=== PATIENT | female | born 1975 | race Caucasian/White ===

== ENCOUNTER 2017-10-16 17:27 | Emergency (ER) | payer OTHER ==
[2017-10-16 17:42] VITALS: BP 130/83
== END 2017-10-16 18:34 | disposition left against medical advice (07) ==
LOC: ED 17:27
DX: Z53.21 Procedure and treatment not carried out due to patient leaving prior to being seen by health care provider (principal)

== ENCOUNTER 2020-02-19 12:01 | Outpatient (CLI) | payer OTHER ==
[2020-02-19 12:30] LABS: BASOPHILS % (AUTO) 0.8 %; EOSINOPHILS # (AUTO) 0.1 10^3/uL (0.0-0.7); HGB - HEMOGLOBIN 13.6 g/dL (12.0-16.0); LYMPHOCYTES % (AUTO) 40.3 %; MEAN CORPUSCULAR HEMOGLOBIN 27.9 pg (27.0-31.0); MEAN CORPUSCULAR HGB CONC 32.2 g/dL (32.0-36.0); MEAN CORPUSCULAR VOLUME 86.7 fL (81.0-99.0); MEAN PLATELET VOLUME 10.4 fL (7.9-10.8); MONOCYTES # (AUTO) 0.4 10^3/uL (0.0-1.0); MONOCYTES % (AUTO) 7.1 %; NEUTROPHILS # (AUTO) 2.5 10^3/uL (1.5-6.6); NEUTROPHILS % (AUTO) 49.6 %; PLT - PLATELET COUNT 258 10^3/uL (130-450); RED BLOOD COUNT 4.87 10^6/uL (4.20-5.40)
== END 2020-02-19 12:02 | disposition home or self-care (01) ==
LOC: LAB 12:01
PROVIDERS: ATTEND Obstetrics & Gynecology
DX: Z01.818 Encounter for other preprocedural examination (principal); N93.9 Abnormal uterine and vaginal bleeding, unspecified
CPT/HCPCS: 36415; 85025; 86850; 86900; 86901; 86920

== ENCOUNTER 2020-02-21 08:28 | Inpatient (IN) | payer OTHER ==
[2020-02-21 08:28] LABS: HCG UR QUAL NEGATIVE
[~2020-02-21 08:28] MED LIST: CEFAZOLIN SODIUM IN 0.9 % NACL 2 GM/100 ML BAG IV ONE
--- NOTE | 2020-02-21 08:44 | ANESTHESIA ---
Pre-Anesthesia VS, & Labs - Diagnosis uterine bleeding - Procedure total laparoscopic hysterectomy, bilateral salphingectomy, cystoscopy Vital Signs: Temp Pulse Resp BP Pulse Ox 36.6 C 65 18 126/78 100 02/21/20 08:20 02/21/20 08:20 02/21/20 08:20 02/21/20 08:20 02/21/20 08:20 Height 5 ft 7 in Weight (kg) 78.47 kg Body Mass Index 25.8 - NPO >8 hours - Is Patient ?: No Home Medications and Allergies Home Medications: Ambulatory Orders Amitriptyline [Elavil] 25 mg PO QPM 02/18/20 Levothyroxine Sodium [Synthroid] 88 mcg PO DAILY 06/22/13 Sertraline [Zoloft] 100 mg PO DAILY 06/22/13 Gabapentin 300 mg ORAL QPM 05/06/16 buPROPion [Wellbutrin Sr] 150 mg ORAL BID 05/06/16 Amitriptyline [Elavil] 25 mg PO QPM 02/18/20 Allergies/Adverse Reactions: Allergies Allergy/AdvReac Type Severity Reaction Status Date / Time erythromycin base Allergy Intermediate Hives Verified 02/18/20 12:06 [Erythromycin Base] Anes History & Medical History - Anesthetic History Anesthesia Complications: reports: Post-Operative Nausea/Vomiting - Medical History Cardiovascular: reports: Other Pulmonary: reports: Sleep apnea Gastrointestinal: reports: None Urinary: reports: Other Musculoskeletal: reports: None Endocrine/Autoimmune: reports: HyPOthyroidism Blood Disorders: reports: None Skin: reports: None Smoking Status: Never smoker - Surgical History Eyes Ears Nose Throat (EENT): Tonsil/Adenoidectomy Gynecologic: section, Tubal ligation, LEEP (Cervical surgery) Exam General: Alert Dental: WNL Mouth Opening: Greater than 4 Fingerbreadths Neck Mobility: Normal Mallampati classification: I Respiratory: Lungs clear Cardiovascular: Regular rate Plan Anesthesia Type: General Consent for Procedure(s) Verified and Reviewed: Yes Code Status: Attempt Resuscitation ASA classification: 2-Mild systemic disease Is this case an emergency?: No
[2020-02-21] MEDS ORDERED: LACTATED RINGERS 1,000 ML IV ONE ×3 (08:50→16:02)
[2020-02-21] MEDS ORDERED: BUPIVACAINE 0.25% PF 30 ML VIAL ONE (09:30)
--- NOTE | 2020-02-21 10:09 | PHARMACY PROGRESS NOTE ---
- Best Possible Medication History Admit Date and Time: 02/21/20 0828 Processed by: Nursing Medication History completed: Yes Patient Interview: Completed As the person ultimately responsible for medication therapy, providers are able to order a medication from an existing home medication list in [facility] via the "Reconcile Routine" prior to Confirmation of that medication by security support analyst. Such practice is discouraged except when the physician, in their clinical judg ment, deems that a medical need exists for a medication without regard to previous use.
[2020-02-21] MEDS ORDERED: BUPIVACAINE 0.25% PF 30 ML VIAL SUBQ ONE (10:16)
[2020-02-21] MEDS ORDERED: SODIUM CHLORIDE 0.9% 500 ML IV PRN (12:24)
[2020-02-21] MEDS ORDERED: oxyCODONE 5 MG TABLET PO PRN ×2 (15:40→15:54)
[2020-02-21] MEDS ORDERED: HYDROmorphone 0.5 MG/0.5 ML SYRINGE IVP PRN (15:40)
--- NOTE | 2020-02-21 15:48 | OPERATIVE REPORT ---
Operative Report - General Admit Date: 02/21/20 Planned Procedure: total laparoscopic hysterectomy, bilateral salpingectomy, cystoscopy Pre-Op Diagnosis: pelvic pain, abnormal uterine bleeding Procedure Performed: total laparoscopic hysterectomy, bilateral salpingectomy, cystoscopy, laparotomy, repair of cystotomy Post Op Diagnosis: same as above, cystotomy - Procedure Note Primary Surgeon: Selma Nj Secondary Surgeon: Malia Oglesby Anesthesia Provider: Neva Casey Anesthesia Technique: General ET tube Pathology: uterus with cervix, bilateral fallopian tubes IV Fluids (mL): 1,400 Estimated Blood Loss (mL): 250 Urine Output (mL): 125 Indications: abnormal uterine bleeding, chronic pelvic pain Findings: Normal uterus, small endometriotic implants in the posterior fossa, normal ovaries, small endometrioma on left fimbria (removed). Cystotomy, thought to have been created with blunt digital penetration during difficult extraction of the uterus, requiring laparotomy and 3 layer repair. Watertight repair and brisk bilateral ureteral jets at conclusion. Complications: cystotomy - Other Other Information/Narrative: After informed consent was obtained, the patient was taken to the operating room, where general anesthesia was administered without difficulty. Exam under anesthesia performed, revealing a small anteverted uterus and no mass. The patient was prepped and draped in normal sterile fashion in the dorsal lithotomy position. Surgical time out was performed. A speculum was placed in the vagina and the anterior cervix was grasped with a single tooth tenaculum. The uterus sounded to 8 cm. Hanks dilators were used to dilate the cervix to 15 Occitan. The Try Out Person uterine manipulator with medium colpotomy ring was placed up to the fundus and the tip balloon was inflated with 10 ml of saline. The colpotomy cup was advanced around the cervix and locked into place. Grant catheter was placed into the bladder, draining clear yellow urine. Attention was directed to the abdomen. After confirming a gastric tube was placed and the bed was flat, 0.25% marcaine was injected at the umbilicus and a 5mm port was inserted through a vertical skin incision under direct visualization with the laparoscope. The abdomen was partially insufflated with <5mmHg initial insufflation pressure which was increased to achieve complete pneumoperitoneum at 15 mmHg. A survey of the abdominal cavity revealed no bowel injury under the entry site, normal liver edge and gallbladder. The uterus was normal; the bladder was noted to be scarred midway up the anterior uterus. Normal fallopian tubes were seen with evidence of prior tubal ligation separat ing the fimbria from the remainder of the tube and a small hemorragic cyst versus endometrioma attached to the left fimbria. The bilateral ovaries were normal. Endometriotic implants (powderburn lesions) were noted along the right ovarian fossa and in the rectouterine cul-de-sac; an Kevin Masters window was noted in the left uterosacral ligament. The ureter was identified and noted to vermiculate on each side. Two lateral 5 mm ports were then placed under direct visualization. The left fallopian tube was grasped at the fimbria and elevated; the Ligasure energy device was used to separate the tube from the mesosalpinx to the level of the cornua, were it was transected. The tube was then placed anterior to the uterus. The same procedure was repeated on the right. The right fimbria was easi ly removed through the port, however the left tube which was distorted by the attached cyst required decompression of the cyst to be removed. The left cornua was gently grasped and elevated; the Ligasure energy device was used to divide the round ligament. The broad ligament was noted to be thickened and fibrotic, making development of a vesicouterine plane difficult. The left uteroovarian ligament was isolated and transected. The right cornua was then grasped and the round ligament transection; this allowed entry into the broad ligament leaves which were dissected down with dissectioncarried anteriorly over the lower uterine segment along the vesicouterine peritoneum to create a bladder flap. This dissection was carried over to the left broad ligament. Some bleeding was noted on the left at the level of the utero-ovarian vessels, this was secured with the Ligasure. The left uterine artery was then skeletonized and cauterized with the Ligasure. The bladder flap was developed with judicious use of blunt dissection and cautery. The right uterine artery was then skeletonized, coagulated and cut with the Harmonic. Several straight bites along the cervix were taken with the Ligasure on each side to allow the pedicles and ureters to fall away laterally. The colpotomy ring was easily identified and isolated circumferentially. The monopolar L hook was used to create a colpotomy circumferentially along the top edge of the colpotomy ring. The manipulator was removed. Due to the narrow introitus and bulbous fundus, difficulty was noted extracting the uterus; the double tooth tenaculum was clamped on the cervix which was brought past the hymen; two single tooth tenaculums were placed on the visible lower uterine segment and the cervix was wedged out with a scalpel. The allowed sufficient compression of the uterine body that it could be removed manually. The colpotomy cuff was grasped with Allis clamps; some bleeding was noted along the right and this was secured with two figure of eight sutures. The cuff was then reapproximated with multiple figure of eight sutures in a horizontal fashion. Attention was turned to the cystoscopy. The grant catheter was removed and the 70 degree cystoscope set up and white balanced. Fluids were run through and the cystoscope was gently advanced through the urethra into the bladder. Bilateral ureteral orifices were identified and brisk ureteral jets were visualized bilaterally. Survey of the bladder mucosa revealed a cystotomy at the right portion of the dome, with no evidence of surrounding pascale or heat injury. The bladder was drained and the cystoscope was removed. A sharp incision was made through the patient's pfannenstiel scar and carried down to the fascia. The fascia was scored on each side and bluntly dissected off of the rectus muscles. The muscles were in the midline and the peritoneum was elevated and entered sharply, with return of a gush of urine. The peritoneal incision was extended bluntly and with cautery. An Constantino retractor was placed. The bowels were gently packed with cephalad with moist laparotomy sponges and held in place with a malleable retractor. The bladder was grasped with a margie allowing visualization of the cystotomy; the injury was an approximately 1.5 cm horizontal lesion with no evidence of surrounding pascale; suspected blunt digital penetration during the manipulation to remove the fundus of the uterus through the vagina. The bladder was repaired in 3 layers; a running layer of 3-0 vicryl in the mucosa, followed by a running locked layer of 3-0 vicryl in the muscularis, and a running embricating suture of 4-0 monocryl in the serosa. Ancef was redosed during the repair due to the extended surgical time. Cystoscopy was again performed and the bladder appeared intact; ureteral jets were again seen. However, there appeared to be some ooze of fluid through the repair; a 4th layer of 3-0 vicryl was placed over the cystotomy, incorporating muscularis and serosa in each bite. The bladder was then filled with sterile milk through a red sameer catheter, and no leakage of milk into the abdomen was noted. The cystoscope was again introduced, the milk was flushed from the bladder; ureteral jets were again identified. The repair appeared watertight from both cystoscopic view and visualization in the abdomen. The cystoscope was removed and a grant catheter was placed to drain the urine. Attention was returned to the abdomen. All pedicles appeared hemostatic. All sponges were removed. The fascia was repaired with a running suture of 0 vicryl. The subcutaneous space was reapproximated with interrupted sutures of 2-0 vicryl. A running subcuticular suture of 4-0 monocryl was used to reapproximate the skin. 4-0 monocryl single interrupted sutures were placed in each port site. Dermabond skin adhesive was placed over each port site, and steristrips were placed over the pfannenstiel incision, follwed by a silver dressing. Lap, instrument, and needle counts were correct x 2. Pt was awakened from anesthesia and transferred to PACU in stable condition.
[2020-02-21] MEDS: ONDANSETRON 4 MG/2 ML VIAL IVP PRN ×2 (15:50→23:36)
[2020-02-21] MEDS ORDERED: SCOPOLAMINE PATCH TOP ONE (15:51)
[2020-02-21] MEDS ORDERED: ONDANSETRON 4 MG/2 ML VIAL ONE (15:51)
[2020-02-21] MEDS: HYDROmorphone 1 MG/ML CARPUJECT ONE ×2 (15:52→15:57)
[2020-02-21] MEDS ORDERED: ACETAMINOPHEN 500 MG TABLET PO SCH (16:00)
[2020-02-21] MEDS ORDERED: HYDROmorphone 0.5 MG/0.5 ML SYRINGE ONE (16:17)
[2020-02-21] MEDS ORDERED: fentaNYL 100 MCG/2 ML VIAL IVP ONE (16:38)
[2020-02-21] MEDS ORDERED: GLYCOPYRROLATE 1 MG/5 ML VIAL IVP ONE (16:38)
[2020-02-21] MEDS ORDERED: ROCURONIUM 50 MG/5 ML VIAL IVP ONE (16:38)
[2020-02-21] MEDS ORDERED: DEXAMETHASONE 4 MG/ML VIAL IVP ONE (16:38)
[2020-02-21] MEDS ORDERED: ACETAMINOPHEN 1,000 MG/100 ML 100 ML IV ONE (16:38)
[2020-02-21] MEDS ORDERED: LIDOCAINE-MPF 2% 5 ML VIAL IM ONE (16:38)
[2020-02-21] MEDS ORDERED: HYDROmorphone 1 MG/ML CARPUJECT IVP ONE (16:38)
[2020-02-21] MEDS ORDERED: PROPOFOL 200 MG/20 ML VIAL IVP ONE (16:38)
[2020-02-21] MEDS ORDERED: fentaNYL 250 MCG/5 ML VIAL IVP ONE (16:38)
[2020-02-21] MEDS ORDERED: ONDANSETRON 4 MG/2 ML VIAL IVP ONE (16:38)
[2020-02-21] MEDS: LACTATED RINGERS 1,000 ML IV SCH ×2 (17:01→23:36)
[2020-02-21] MEDS ORDERED: PROMETHAZINE 25 MG/1 ML VIAL IM SCH (18:56)
[2020-02-21] MEDS: PROMETHAZINE 25 MG/1 ML VIAL IM PRN (19:23)
[2020-02-21] MEDS: PROCHLORPERAZINE 10 MG/2 ML VIAL IVP PRN (20:48)
[2020-02-21] MEDS: DOCUSATE SODIUM 100 MG CAPSULE PO SCH (20:49)
[2020-02-21] MEDS: ACETAMINOPHEN 1,000 MG/100 ML 100 ML IV PRN (23:42)
[2020-02-22] MEDS: PROMETHAZINE 25 MG/1 ML VIAL IM PRN (01:27)
[2020-02-22 04:44] LABS: BASOPHILS % (AUTO) 0.2 %; EOSINOPHILS # (AUTO) 0.1 10^3/uL (0.0-0.7); EOSINOPHILS % (AUTO) 0.5 %; HGB - HEMOGLOBIN 12.1 g/dL (12.0-16.0); LYMPHOCYTES % (AUTO) 5.2 %; MEAN CORPUSCULAR HEMOGLOBIN 27.8 pg (27.0-31.0); MEAN CORPUSCULAR HGB CONC 32.2 g/dL (32.0-36.0); MEAN CORPUSCULAR VOLUME 86.4 fL (81.0-99.0); MEAN PLATELET VOLUME 10.7 fL (7.9-10.8); MONOCYTES # (AUTO) 0.9 10^3/uL (0.0-1.0); MONOCYTES % (AUTO) 5.1 %; NEUTROPHILS # (AUTO) 16.2 10^3/uL (1.5-6.6); NEUTROPHILS % (AUTO) 88.6 %; PLT - PLATELET COUNT 271 10^3/uL (130-450); RED BLOOD COUNT 4.35 10^6/uL (4.20-5.40); RED CELL DISTRIBUTION WIDTH 12.8 % (12.0-15.0); WHITE BLOOD COUNT 18.3 x10^3/uL (4.8-10.8)
[2020-02-22] MEDS: PROCHLORPERAZINE 10 MG/2 ML VIAL IVP PRN (04:45)
--- NOTE | 2020-02-22 07:22 | PROVIDER PROGRESS NOTE ---
Subjective - Prog Note Date Prog Note Date: 02/22/20 Prog Note Time: 07:20 - Subjective Pt reports feeling: No change (44 yo woman POD#1 s/p TLH/BS c/b cystotomy requiring laparotomy and bladder repair. Significant nausea overnight; no relief with zofran, some rest with phenergan and compazine, but still very nauseous when awake. Has not tolerated anything other than ice chips and water. Not yet ambulating. Voiding to grant. Not passing flatus. Pain well controlled with IV tylenol alone currently; reports pain primarily burning incisional pain around pfannenstiel.) Objective - Vital Signs/Intake & Output Vital Signs: Vital Signs x48h Temp Pulse Resp BP Pulse Ox 02/22/20 03:00 97.5 F L 74 20 127/75 100 Intake & Output: Intake & Output 02/19/20 02/20/20 02/21/20 02/22/20 23:59 23:59 23:59 23:59 Intake Total 2808.333 100 Output Total 1045 725 Balance 1763.333 -625 - Objective General Appearance: positive: Alert (some nausea and spitting this AM, but no dry heaving during exam; improved from yesterday evening when retching was nearly constant) Abdomen: positive: No distention (soft, appropriate rodolfo-incisional tenderness, no rebound or guarding. Port sites c/d/i, some surrounding ecchymosis in RLQ. Silver dressing over pfannenstiel, no strike through.) Skin: positive: Color nml Extremities: positive: Non-tender Neurologic/Psychiatric: positive: Oriented x3 - Lab Results Fish Bones: 02/22/20 04:25 Other Labs: Lab Results x24hrs 02/22/20 02/21/20 Range/Units 04:25 08:23 WBC 18.3 H (4.8-10.8) x10^3/uL RBC 4.35 (4.20-5.40) 10^6/uL Hgb 12.1 (12.0-16.0) g/dL Hct 37.6 (37.0-47.0) % MCV 86.4 (81.0-99.0) fL MCH 27.8 (27.0-31.0) pg MCHC 32.2 (32.0-36.0) g/dL RDW 12.8 (12.0-15.0) % Plt Count 271 (130-450) 10^3/uL MPV 10.7 (7.9-10.8) fL Neut # (Auto) 16.2 H (1.5-6.6) 10^3/uL Lymph # (Auto) 1.0 L (1.5-3.5) 10^3/uL [place] # (Auto) 0.9 (0.0-1.0) 10^3/uL Eos # (Auto) 0.1 (0.0-0.7) 10^3/uL Baso # (Auto) 0.0 (0.0-0.1) 10^3/uL Absolute Nucleated RBC 0.00 x10^3/uL Nucleated RBC % 0.0 /100WBC Ur Specific [place] >=1.030 H (1.002-1.030) Urine HCG, Qual NEGATIVE Assessment/Plan - Problem List (1) Absence of both cervix and uterus, acquired Impression: 44 yo woman POD#1 s/p TLH/BS c/b cystotomy requiring laparotomy and bladder repair. Overnight, nausea and vomiting with minimal PO intake. VS wnl, UOP 0.7 ml/kg/h. Exam benign. Hct 37. Postop nausea. Improved mildly with compazine, zofran ineffective. Will consider trial of reglan today. Encourage ambulation, chewing gum, and clear diet when tolerated. High risk for developing ileus, will continue to monitor. Pain control. Continue IV tylenol, IV dilaudid only prn breakthrough. Transition to orals when pt can tolerate Cystotomy. Maintain grant catheter in place, plan for 2 weeks bladder compression and retrograde cystogram prior to removal VTE prophylaxis. SCDs. Dispo. Home tomorrow if tolerating PO, passing flatus, and pain well controlled.
[2020-02-22] MEDS: ONDANSETRON 4 MG/2 ML VIAL IVP PRN (08:22)
[2020-02-22] MEDS: ACETAMINOPHEN 1,000 MG/100 ML 100 ML IV PRN ×2 (08:22→16:09)
[2020-02-22] MEDS: DOCUSATE SODIUM 100 MG CAPSULE PO SCH ×2 (08:26→19:22)
[2020-02-22] MEDS ORDERED: METOCLOPRAMIDE 10 MG/2 ML VIAL IVP PRN (08:28)
[2020-02-22] MEDS: LACTATED RINGERS 1,000 ML IV SCH ×2 (10:12→19:22)
[2020-02-23] MEDS: ACETAMINOPHEN 1,000 MG/100 ML 100 ML IV PRN ×2 (00:12→05:41)
[2020-02-23] MEDS: LACTATED RINGERS 1,000 ML IV SCH (05:40)
[2020-02-23] MEDS ORDERED: IBUPROFEN 800 MG TABLET PO PRN (07:42)
--- NOTE | 2020-02-23 07:45 | PROVIDER PROGRESS NOTE ---
Subjective - Prog Note Date Prog Note Date: 02/23/20 Prog Note Time: 07:40 - Subjective Pt reports feeling: Improved (Pt doing significantly better. Postoperative nausea resolved, no nausea or emesis overnight, did not need reglan. Tolerated clears last night (broth, jello) with no nausea. Hungry for breakfast this AM. Voiding to grant. Noted some slight spotting from vagina when she felt urge to have BM, no other discharge. Has not passed flatus or had BM yet. Ambulating without assistance. Pain well controlled with IV tylenol alone.) Objective - Vital Signs/Intake & Output Vital Signs: Vital Signs x48h Temp Pulse Resp BP Pulse Ox 02/23/20 04:55 98.2 F 84 16 111/66 94 02/23/20 00:05 98.8 F 91 16 131/67 H 96 Intake & Output: Intake & Output 02/20/20 02/21/20 02/22/20 02/23/20 23:59 23:59 23:59 23:59 Intake Total 2808.333 2336.667 1185 Output Total 1045 3325 1950 Balance 1763.333 -988.333 -765 - Objective General Appearance: positive: No acute distress Abdomen: positive: No distention (soft, appropriate rodolfo-incisional tenderness. Port sites c/d/i with skin adhesive in place. Silver dressing and foam tape over pfannenstiel.) Extremities: positive: Non-tender Neurologic/Psychiatric: positive: Oriented x3 - Lab Results Fish Bones: 02/22/20 04:25 Assessment/Plan - Problem List (1) Absence of both cervix and uterus, acquired Impression: 44 yo POD#2 s/p TLH/BS c/b cystotomy with immediate laparotomy and repair. VS wnl, exam benign, UOP excellent. -Cystotomy. Grant remains in place. Will transition to leg bag today and teach patient to empty. Referral placed to Dr. Chen, [facility], for cystogram 10-14 days post-operatively to determine if grant catheter can be removed. Pt aware to expect call from her office. Rvwd importance of monitoring output, seeking care if tube seems blocked or if frankly bloody urine. -Post-op nausea and vomiting. Significantly improved, no antiemetics overnight. Will advance diet today. -Post-op pain control. Transition tylenol to PO, start oral ibuprofen once tolerating regular diet. -Dispo. Once passing flatus and tolerating regular diet, will discharge. Rvwd discharge precautions. Follow up in clinic on or Tuesday for removal of silver dressing and incision check, pt aware to expect a call from [facility] to schedule on Tuesday.
--- NOTE | 2020-02-23 07:54 | DISCHARGE SUMMARY ---
Discharge Summary Admit Date: 02/21/20 Discharge Date: 02/23/20 Discharging Provider: Selma Nj Code Status: Attempt Resuscitation Condition at Discharge: Good Discharge Disposition: 01 Home, Self Care Discharge Facility Name: [facility] - DIAGNOSES Admission Diagnoses: Abnormal uterine bleeding Discharge Diagnoses with Status of Each Condition: 1. Abnormal uterine bleeding, s/p hysterectomy 2. Endometriosis 3. Cystotomy during surgery, s/p immediate laparotomy and repair 4. Postoperative nausea and vomiting, resolved - HPI History of Present Illness: 44 yo woman with abnormal uterine bleeding admitted for planned surgery. - CONSULTS | PROCEDURES Procedures: 1. total laparoscopic hysterectomy and bilateral salpingectomy 2. cystoscopy 3. laparotomy with repair of cystotomy - HOSPITAL COURSE Hospital Course: Admitted for planned surgery. Underwent total laparoscopic hysterectomy, bilateral salpingectomy and cystoscopy with cystotomy identifed during cystoscopy. 1.5 cm injury to bladder dome. Immediate laparotomy and repair of cystotomy; bladder back-fill confirmed repair watertight and repeat cystoscopy confirmed no occlusion or kinking of ureters. Postoperative course complicated by significant nausea and vomiting, refractory to scopolamine, zofran, phenergan, compazine, ultimately resolved with bowel rest and reglan in the evening of POD#1. Pt remained afebrile throughout her stay. At the time of discharge, pain was well controlled with oral medications, she was tolerating regular diet without further nausea and ambulating unassisted. A grant catheter remained in place to keep the bladder decompressed and patient was educated on use of a leg bag and grant catheter care before discharge. - ALLERGIES Allergies/Adverse Reactions: Allergies Allergy/AdvReac Type Severity Reaction Status Date / Time erythromycin base Allergy Intermediate Hives Verified 02/18/20 12:06 [Erythromycin Base] - MEDICATIONS Home Medications: Ambulatory Orders Medication Instructions Recorded Confirmed Levothyroxine Sodium [Synthroid] 88 mcg PO DAILY 06/22/13 02/21/20 Sertraline [Zoloft] 100 mg PO DAILY 06/22/13 02/21/20 Gabapentin 300 mg PO QPM 05/06/16 02/21/20 buPROPion [Wellbutrin Sr] 150 mg PO BID 05/06/16 02/21/20 Amitriptyline [Elavil] 25 mg PO QPM 02/18/20 02/21/20 - PHYSICAL EXAM AT DISCHARGE General Appearance: positive: No acute distress (see progress note for full exam) - LABS Result Diagrams: 02/22/20 04:25 - FOLLOW UP Follow Up: 1. Follow up with Dr. Nj at [facility] [employer]; expect a call from our clinic on Tuesday or Tuesday to schedule an appt for or 28 February to check your incisions 2. Follow up with Dr. Salinas at [facility] for Cystogram March 03-; expect a call from their office this week once Alejandrina authorizes referral Home care instructions Do not drive for at least 2 weeks after your surgery. You should never drive if you are using prescription pain medicine and you should not drive until you feel you could react quickly in traffic. After surgery expect to have both good days and bad days as you recover. The first few days after surgery most women are sore so plan to stay at home and have someone nearby to help out. As you begin to recover gradually increase your activity. For the first 4 weeks after surgery please do not: "work out", do house work, or lift objects heavier than 10 lbs (approximately a gallon of milk). Please do not have intercourse or place anything in the vagina for 6 weeks after surgery. You may shower but do not take baths or swim. Let soap and water run over your incisions and pat dry. Use a stool softener for 2-4 weeks so that you do not need to strain for bowel movements. [id number] may be added for constipation. The grant catheter will remain in your bladder until the cystogram shows your bladder is healed, 10-14 days after surgery. It will need to be emptied regularly. If at any time the urine appears to be frankly bloody or you are not getting urine in the tube and it feels like your bladder is full, please call the [employer] clinic or come to the ER. When to call the clinic [phone], or come to the Emergency Department: Blee ding heavier than a period, wound redness or drainage, vomiting, severe pain, fever to 100.4 or higher, inability or difficulty emptying your bladder or any other unusual symptoms. - TIME SPENT Time Spent in Discharge (Minutes): 30
[2020-02-23] MEDS ORDERED: ACETAMINOPHEN 500 MG TABLET PO SCH ×2 (08:00→12:00)
[2020-02-23] MEDS: DOCUSATE SODIUM 100 MG CAPSULE PO SCH (08:15)
[2020-02-23 12:42] VITALS: BP 120/74
== END 2020-02-23 13:50 | disposition home or self-care (01) | DRG 742 ==
LOC: MS2 08:28
PROVIDERS: ADMIT Obstetrics & Gynecology; ATTEND Obstetrics & Gynecology
PROC: 0TQB0ZZ Repair Bladder, Open Approach (ICD-10-PCS; 2020-02-21)
PROC: 0UT74ZZ Resection of Bilateral Fallopian Tubes, Percutaneous Endoscopic Approach (ICD-10-PCS; 2020-02-21)
PROC: 0UT94ZZ Resection of Uterus, Percutaneous Endoscopic Approach (ICD-10-PCS; principal; 2020-02-21 09:15)
DX: N80.3 Endometriosis of pelvic peritoneum (principal); N99.71 Accidental puncture and laceration of a genitourinary system organ or structure during a genitourinary system procedure; N80.2 Endometriosis of fallopian tube; N99.4 Postprocedural pelvic peritoneal adhesions; R11.2 Nausea with vomiting, unspecified; E03.9 Hypothyroidism, unspecified; F32.9 Major depressive disorder, single episode, unspecified; M54.2 Cervicalgia; Z87.891 Personal history of nicotine dependence
CPT/HCPCS: 36415; 81025; 85025; 86850; 86900; 86901; 86920

== ENCOUNTER 2021-04-23 13:14 | Outpatient (CLI) | payer OTHER ==
--- NOTE | 2021-04-23 14:30 | MRI Report ---
PROCEDURE: Knee LT W/O INDICATIONS: PAIN IN LEFT KNEE TECHNIQUE: Noncontrast sagittal PD fast spin echo and T2 fast spin echo with fat saturation, sagittal 3-D gradie nt sequence with fat saturation; coronal T1 spin echo and PD fast spin echo with fat saturation, and axial PD fast spin echo with fat saturation through the knee. COMPARISON: None. FINDINGS: Menisci: Medial meniscus: Increased focal T2 hyperintense signal change is present adjacent to the posterior h orn of the medial meniscus, for example image 23/501. Lateral meniscus: Intact. Cruciate ligaments: Anterior cruciate ligament: Intact. Incidentally noted periligamentous ganglion cysts. Posterior cruciate ligament: Intact. Medial structures: The medial collateral ligament appears intact. The semimembranosus tendon appears intact. Visualized portions of the pes anserinus tendons appear normal. No abnormal bursal fluid. Lateral structures: Lateral collateral ligament appears grossly intact. Biceps femoris tendon appears intact. Iliotibial band within normal limits. Popliteus tendon within normal limits. Anterior structures: Mild patellar tendinopathy, with prepatellar and superficial infrapatellar edema. The quadriceps tendon appears intact. Medial and lateral patellofemoral ligaments appear grossly intact. Patellar alignment is normal. Hoffa's fat pad unremarkable. Bones and cartilage: Bones: No bone marrow contusions or fractures. Medial compartment: Cartilage intact. Lateral compartment: Cartilage intact. Patellofemoral compartment: Cartilage intact. Joint space: No joint effusion. No Douglass?s cyst. No specific evidence of loose body identified. IMPRESSION: Signal changes adjacent to the posterior horn of the medial meniscus suggestive of meniscocapsular se paration/peripheral meniscal tear. Please correlate point tenderness and clinical exam findings. Mild patellar tendinopathy. Reviewed by: Luis Gasca MD on 04/23/2021 2:29 PM PDT Approved by: Luis Gasca MD on 04/23/2021 2:29 PM PDT Station ID: [id number]
== END 2021-04-23 13:15 | disposition home or self-care (01) ==
LOC: DI 13:14
PROVIDERS: ATTEND Nurse Practitioner Family
DX: M67.962 Unspecified disorder of synovium and tendon, left lower leg (principal)

== ENCOUNTER 2021-05-11 13:33 | Outpatient (CLI) | payer OTHER ==
--- NOTE | 2021-05-18 15:44 | Mammography Report ---
BILATERAL DIGITAL SCREENING MAMMOGRAM 3D/2D WITH AUGMENTATION: 05/11/2021 CLINICAL: Routine screening. No prior exams were available for comparison. The tissue of both breasts is heterogeneously dense. T his may lower the sensitivity of mammography. There is a 0.8 cm asymmetry in the right breast anterior depth inferior region seen on the mediolater al oblique view only 1.5 cm from the nipple. No other significant masses, calcifications, or other findings are seen in either breast. IMPRESSION: INCOMPLETE: NEEDS ADDITIONAL IMAGING EVALUATION The 0.8 cm asymmetry in the right breast is indeterminate. Additional views with possible ultrasound are recommended. This exam was interpreted at Station ID: [id number]. NOTE: For mammograms, a report in lay terms will be sent to the patient. Approximately 15% of breast malignancies will not be visualized mammographically. In the management of a palpable breast mass, a negative mammogram must not discourage biopsy of a clinically suspicious lesion. Electronically Signed By: Osbaldo Rowe M.D., jr/erika:05/18/2021 09:04:10 ACR BI-RADS Category 0: Incomplete 3340F PARENCHYMAL PATTERN: (D) - The breast(s) demonstrate(s) heterogeneously dense fibroglandular parenchy ma. BI-RADS CATEGORY: (0) - 0 Mammo and [place] [id number] Immediate follow-up LATERALITY: (B)
== END 2021-05-11 13:34 | disposition home or self-care (01) ==
LOC: DI 13:33
DX: Z12.31 Encounter for screening mammogram for malignant neoplasm of breast (principal); R92.8 Other abnormal and inconclusive findings on diagnostic imaging of breast

== ENCOUNTER 2021-06-04 09:43 | Outpatient (CLI) | payer OTHER ==
--- NOTE | 2021-06-04 15:13 | XRAY Report ---
PROCEDURE: Knee 4 View LT INDICATIONS: CHRONIC DERANGEMENT OF MEDIAL MENISCUS TECHNIQUE: 4 views of the left knee(s) were acquired. COMPARISON: MRI left knee 04/23/2021 FINDINGS: Bones: No fractures or dislocations. No suspicious bony lesions. No erosions or periarticular oste ophytes Soft tissues: No joint effusion. No suspicious soft tissue calcifications. IMPRESSION: No visualized acute fracture or dislocation. However, occult injury cannot be excluded. Recommend short interval imaging follow-up in 7-10 days as clinically indicated for additional evalua tion. Reviewed by: Carrie Richter MD on 06/04/2021 3:11 PM PDT Approved by: Carrie Richter MD on 06/04/2021 3:11 PM PDT Station ID: [id number]
== END 2021-06-04 23:59 | disposition home or self-care (01) ==
LOC: DI.N 09:43
PROVIDERS: ATTEND Orthopaedic Surgery
DX: M23.204 Derangement of unspecified medial meniscus due to old tear or injury, left knee (principal)

== ENCOUNTER 2021-06-19 12:40 | Outpatient (CLI) | payer OTHER ==
--- NOTE | 2021-06-22 10:20 | Mammography Report ---
UNILATERAL RIGHT DIGITAL DIAGNOSTIC MAMMOGRAM 3D/2D: 06/19/2021 CLINICAL: Patient returns today to evaluate an asymmetry in the right breast. Comparison is made to exam dated: 05/11/2021 mammogram - [facility]. The tissue of right breast is heterogeneously dense. This may lower the sensitivity of mammography. There is a 0.8 cm asymmetry in the right breast anterior depth inferior region seen on the mediolater al oblique view only 1.5 cm from the nipple. This is less prominent and decreased in size. No other significant masses or calcifications are seen in the breast. IMPRESSION: INCOMPLETE: NEEDS ADDITIONAL IMAGING EVALUATION The 0.8 cm asymmetry in the right breast is indeterminate. An ultrasound is recommended for further e valuation and is scheduled to immediately follow this examination. recommend clinical follow up for p ersistent or worsening symptoms, or development of any clinically suspicious findings. This exam was interpreted at Station ID: [id number]. NOTE: For mammograms, a report in lay terms will be sent to the patient. Approximately 15% of breast malignancies will not be visualized mammographically. In the management of a palpable breast mass, a negative mammogram must not discourage biopsy of a clinically suspicious lesion. Electronically Signed By: Aramis Dean M.D. aty/:06/19/2021 16:26:53 ACR BI-RADS Category 0: Incomplete 3340F PARENCHYMAL PATTERN: (D) - The breast(s) demonstrate(s) heterogeneously dense fibroglandular erick bowen. BI-RADS CATEGORY: (0) - 0 Ultrasound [id number] Immediate follow-up LATERALITY: (R)
--- NOTE | 2021-06-22 10:20 | Ultrasound Report ---
LIMITED ULTRASOUND OF RIGHT BREAST: 06/19/2021 CLINICAL: Patient returns today to evaluate a focal asymmetry in the right breast. Comparison is made to exams dated: 06/19/2021 mammogram and 05/11/2021 mammogram - [facility]. Real-time ultrasound of the right breast 6-7 o'clock region was performed. Williamson scale images of the real-time examination were reviewed. No sonographic abnormalities are noted in the anterior right breast. IMPRESSION: PROBABLY BENIGN There is no abnormality seen in the right breast to correspond with the mammography finding in the an terior depth in the lower aspect. This asymmetry is a probably benign finding. A follow-up right mammogram with possible ultrasound in 6 months is recommended to demonstrate stabil ity. Findings and recommendations were conveyed to the patient during today's evaluation. This exam was interpreted at Station ID: [id number]. Electronically Signed By: Aramis Dean M.D. aty/:06/19/2021 16:28:53 Ultrasound BI-RADS: 3 Probably benign BI-RADS CATEGORY: (3) - 3 Mammo and [place] [id number] 6 month follow-up LATERALITY: (R)
== END 2021-06-19 12:41 | disposition home or self-care (01) ==
LOC: DI 12:40
PROVIDERS: ATTEND Student in an Organized Health Care Education/Training Program
DX: R92.8 Other abnormal and inconclusive findings on diagnostic imaging of breast (principal)

== ENCOUNTER 2022-01-13 09:53 | Outpatient (CLI) | payer OTHER ==
--- NOTE | 2022-01-13 15:49 | MRI Report ---
PROCEDURE: Lumbar Spine W/O INDICATIONS: DORSALGIA TECHNIQUE: Noncontrast sagittal T1 spin echo and T2 fast echo, sagittal STIR, axial T1 and T2 fast spin echo thr ough the lumbar spine. In cases with scoliosis, additional coronal T2 fast spin echo may be performe d. COMPARISON: None. FINDINGS: Transitional anatomy with partial sacralization on the right at L5. The lowest fully formed disc is a ssigned the L5-S1 designation. Remaining levels are numbered accordingly. Approximately 2 mm anterolisthesis of L3 on L4 and L4-L5. Otherwise normal alignment. Vertebral body heights maintained. Known suspicious focal marrow signal abnormality. Periarticular marrow edema in the periarticular L3-L4 and L4-L5 facet pillars and pedicles. Normal position and appearance of the conus. Prevertebral and paraspinous soft tissues are within normal limits. T12-L1: No spinal canal or neural foraminal stenosis. L1-L2: No spinal canal or neural foraminal stenosis. L2-L3: No spinal canal or neural foraminal stenosis. L3-L4: Disc bulge flattens the ventral thecal sac with mild mass effect upon the traversing L4 nerv e roots. Moderate bilateral neural foraminal narrowing due to foraminal component of the disc bulge a nd moderate facet hypertrophy. L4-L5: Diffuse disc bulge with displacement of the descending L5 nerve roots in both subarticular z ones. [id number] bilateral neural foraminal stenosis due to foraminal components of a diffuse d isc bulge and superimposed protrusion, in conjunction with moderate facet hypertrophy. L5-S1: Disc bulge mildly displaces the descending S1 nerve roots in the subarticular zones. No neur al foraminal stenosis. IMPRESSION: Transitional anatomy. Marrow edema adjacent to the L3-L4 and L4-L5 facets involving the facet pillars and pedicles. This is a potential source of radicular axial back pain. Moderate neural foraminal stenosis at L4-L5. Mild displacement of multiple descending nerve roots within the subarticular zones bilaterally from L 3-L4 through L5-S1. Correlate for any corresponding radicular symptoms. Reviewed by: Osbaldo Rowe MD on 01/13/2022 3:48 PM PDT Approved by: Osbaldo Rowe MD on 01/13/2022 3:48 PM PDT Station ID: [id number]
== END 2022-01-13 09:54 | disposition home or self-care (01) ==
LOC: DI 09:53
PROVIDERS: ATTEND Student in an Organized Health Care Education/Training Program
DX: M48.061 Spinal stenosis, lumbar region without neurogenic claudication (principal); R93.7 Abnormal findings on diagnostic imaging of other parts of musculoskeletal system

== ENCOUNTER 2022-08-16 10:22 | Outpatient (CLI) | payer OTHER ==
[2022-08-16 10:51] LABS: BASOPHILS % (AUTO) 0.6 %; EOSINOPHILS # (AUTO) 0.1 10^3/uL (0.0-0.7); EOSINOPHILS % (AUTO) 2.3 %; HCT - HEMATOCRIT 40.8 % (37.0-47.0); HGB - HEMOGLOBIN 13.7 g/dL (12.0-16.0); LYMPHOCYTES # (AUTO) 1.9 10^3/uL (1.5-3.5); LYMPHOCYTES % (AUTO) 37.1 %; MEAN CORPUSCULAR HEMOGLOBIN 29.3 pg (27.0-31.0); MEAN CORPUSCULAR HGB CONC 33.6 g/dL (32.0-36.0); MEAN CORPUSCULAR VOLUME 87.4 fL (81.0-99.0); MEAN PLATELET VOLUME 10.1 fL (7.9-10.8); MONOCYTES # (AUTO) 0.4 10^3/uL (0.0-1.0); MONOCYTES % (AUTO) 6.7 %; NEUTROPHILS # (AUTO) 2.8 10^3/uL (1.5-6.6); NEUTROPHILS % (AUTO) 53.1 %; PLT - PLATELET COUNT 267 10^3/uL (130-450); RED BLOOD COUNT 4.67 10^6/uL (4.20-5.40); RED CELL DISTRIBUTION WIDTH 12.4 % (12.0-15.0); WHITE BLOOD COUNT 5.2 x10^3/uL (4.8-10.8)
[2022-08-16 11:13] LABS: ALBUMIN 3.9 g/dL (3.2-5.5); ALBUMIN/GLOBULIN RATIO 1.4 (1.0-2.2); ALKALINE PHOSPHATASE 48 IU/L (42-121); ALT ALANINE AMINOTRANSFERASE 49 IU/L (10-60); AST ASPARTATE AMINOTRANSFERASE 25 IU/L (10-42); BILIRUBIN,TOTAL 0.7 mg/dL (0.2-1.0); BUN - BLOOD UREA NITROGEN 18 mg/dL (6-20); CALCIUM 8.7 mg/dL (8.5-10.3); CARBON DIOXIDE - CO2 26 mmol/L (21-32); CHLORIDE 106 mmol/L (101-111); CHOL/HDL RATIO 3.5 (<4.4); CHOLESTEROL 155 mg/dL; CREATININE 0.8 mg/dL (0.4-1.0); GFR - MDRD 78 (>89); GLUCOSE 97 mg/dL (70-100); HDL CHOLESTEROL 44 mg/dL; LDL CHOLESTEROL,CALCULATED 97 mg/dL; LDL/HDL RATIO 2.2 (<4.4); POTASSIUM 3.9 mmol/L (3.5-5.0); SODIUM 138 mmol/L (135-145); TOTAL PROTEIN 6.6 g/dL (6.7-8.2); TRIGLYCERIDES 71 mg/dL; VLDL CHOLESTEROL 14 mg/dL
[2022-08-16 11:15] LABS: CRP - C-REACTIVE PROTEIN < 1.0 mg/dL (0-1.0)
[2022-08-16 11:21] LABS: THYROID STIMULATING HORMONE 1.96 uIU/mL (0.34-5.60)
[2022-08-16 13:40] LABS: RHEUMATOID FACTOR NEGATIVE (Negative)
[2022-08-17 16:08] LABS: ANTI-DNA (DS) AB QN 2 IU/mL (0-9); CENTROMERE B ANTIBODIES <0.2 AI (0.0-0.9); CHROMATIN ANTIBODIES 0.2 AI (0.0-0.9); JO-1 AB <0.2 AI (0.0-0.9); RIBOSOMAL P ANTIBODIES <0.2 AI (0.0-0.9); RNP ANTIBODIES <0.2 AI (0.0-0.9); SCLERODERMA-70 ANTIBODIES <0.2 AI (0.0-0.9); SJOGREN'S ANTI-SS-A <0.2 AI (0.0-0.9); SJOGREN'S ANTI-SS-B <0.2 AI (0.0-0.9); SMITH ANTIBODIES <0.2 AI (0.0-0.9); SMITH/RNP ANTIBODIES <0.2 AI (0.0-0.9)
[2022-08-18 20:08] LABS: CYCLIC CITRULLINATED PEP IGG/A 3 units (0-19)
== END 2022-08-16 10:23 | disposition home or self-care (01) ==
LOC: LAB 10:22
PROVIDERS: ATTEND Physician Assistant
DX: E03.9 Hypothyroidism, unspecified (principal); Z51.81 Encounter for therapeutic drug level monitoring; Z13.220 Encounter for screening for lipoid disorders; Q76.49 Other congenital malformations of spine, not associated with scoliosis
CPT/HCPCS: 36415; 80053; 80061; 83721; 84443; 85025; 85651; 86140; 86200; 86225; 86235; 86430

== ENCOUNTER 2022-10-19 12:57 | Outpatient (CLI) | payer OTHER ==
[~2022-10-19 12:57] MED LIST changes: -CEFAZOLIN SODIUM IN 0.9 % NACL 2 GM/100 ML BAG IV ONE; +GADOBUTROL 7.5 MMOL/7.5 ML VIAL ONE
--- NOTE | 2022-10-19 17:59 | MRI Report ---
PROCEDURE: BRAIN W/WO INDICATIONS: HEADACHE CONTRAST: gadavist 7.5 TECHNIQUE: Noncontrast axial T1 spin echo, axial T2 fast spin echo, sagittal and axial FLAIR, coronal T2 fast sp in echo, axial gradient echo, axial diffusion and ADC through the brain. After the administration of contrast, axial and coronal T1 spin echo with fat saturation through the brain. COMPARISON: None. FINDINGS: Image quality: Motion artifact is noted. CSF spaces: Basal cisterns are patent. No extra-axial fluid collections. Ventricles are normal in size and shape. Brain: A few tiny small of T2 hyperintensity can be seen within the white matter, as seen on the rig ht on series 8 image 13. No abnormal enhancement can be seen. No midline shift. No intracranial bleeds or masses. No abnormal intracranial enhancement. The brai nstem appears normal. Diffusion-weighted images demonstrate no acute ischemic insults. No chronic i schemic insults. Normal intravascular flow voids are present. Skull and face: Calvarial marrow is normal in signal. Orbits appear normal. Sinuses: Sinuses and mastoids appear clear. IMPRESSION: A few small foci of T2-weighted hyperintensity can be seen within the white matter. These have the ap pearance of sequelae of migraine headaches, although are nonspecific. Differential diagnosis would al so include early demyelination in a female patient of this age. No masses or abnormal enhancement can be seen. Reviewed by: Karan Mcfarland MD on 10/19/2022 4:57 PM [facility] Approved by: Karan Mcfarland MD on 10/19/2022 4:57 PM [facility] Station ID: [id number]
== END 2022-10-19 12:58 | disposition home or self-care (01) ==
LOC: DI 12:57
PROVIDERS: ATTEND Physician Assistant
DX: R51.9 Headache, unspecified (principal)
CPT/HCPCS: 70553; A9585